=== PATIENT | female | born 1975 | race Caucasian/White ===

== ENCOUNTER → 2017-02-05 | Outpatient (CLI) | payer MEDICARE, MEDICAID ==
[~2017-02-05] MED LIST: ASCORBIC ACID500 MG PO; AUGMENTIN875 MG PO; BACTRIM DS DPS1 TAB PO; BACTRIM DS TAB1 EACH PO; BROVANA15 MCG/2 M IH; BUSPAR DPS15 MG PO; CLARITIN DPS10 MG PO; CLARITIN10 M2 PO; COMBIVENT RESPIM4 GM IH; CORTISPORIN OP7.5 ML; DELTASONE DPS20 MG PO; DESYREL DPS100 MG PO; DESYREL-DPS50 MG PO; DITROPAN-DPS5 MG PO; DUONEB DPS3 ML IH; HYTRIN5 MG PO; IRON325 M1 PO; LASIX DPS20 MG PO; LEVAQUIN DPS500 MG PO; LOTRIMIN DPS15 GM TP; MAALOX DPS30 ML PO; MONTELUKAST SOD10 MG PO; NILSTAT SUSP DPS5 ML PO; PROMETHAZINE-D120 ML PO; PROVENTIL HFA6.7 GM IH; PULMICORT0.25 MG/1 PO; PULMICORT0.5 MG/2 M IH; SINGULAIR10 MG PO; SURFAK DPS240 MG PO; SYMBICORT160 MCG/6 IH; THERA1 EACH PO; TYLENOL DPS325 MG PO; VALIUM5 MG PO; XANAX DPS0.25 MG PO; ZANTAC DPS150 MG PO; ZOLOFT DPS100 MG PO; ZOLOFT DPS50 MG PO
== END | disposition home or self-care (01) ==
LOC: RAD.S 09:46
DX: R09.89 Other specified symptoms and signs involving the circulatory and respiratory systems (principal); Z87.01 Personal history of pneumonia (recurrent)

== ENCOUNTER 2017-03-05 11:27 | Emergency (ER) | payer MEDICARE, MEDICAID ==
--- NOTE | 2017-03-11 16:08 | ER ---
ADMIT: 03/05/2017 RM/LOC: ER [facility] MR#: [id number] [place], [place] [id number] [address] [place] [address] Emergency Room Report SEX: F AGE: 41 : 1975 DATE: 03/05/2017 ADDENDUM: CHIEF COMPLAINT: Chest pain. HISTORY OF PRESENT ILLNESS: This is a 41-year-old female, who just recently getting over bronchitis. She is on her last day of prednisone. She finishes Levaquin tomorrow. She was at, I believe physical therapy this morning. She told him that it was difficult for her to swallow this morning, she felt like pill was stuck in her throat, and also complains some chest pain, so they sent her to the emergency room. Upon arrival, she rates her pain at 9/10, and points to the right side of her chest, says she feels like something is stuck in there. PAST MEDICAL HISTORY: Hypertension, anxiety, asthma, and GERD. HOME MEDICATIONS: Please see nurse's note. ALLERGIES: ERYTHROMYCIN, CODEINE, AND ROCEPHIN. FAMILY HISTORY: Noncontributory. SOCIAL HISTORY: Denies any tobacco, drug, or alcohol use. PHYSICAL EXAMINATION: VITAL SIGNS: Blood pressure is 138/78, pulse is 65, respirations 16, temperature is 97.2, and saturation of oxygen is 95% on room air. GENERAL APPEARANCE: The patient is no acute distress and alert. HEENT: Pharynx is slightly erythemic. She is actually look like she has abrasion towards the posterior throat. TMs are non-erythemic bilaterally. NECK: Supple. HEART: Regular rate and rhythm at a rate of 65. LUNGS: CTA bilaterally. No wheezes, rales, or rhonchi. Her sats are 95% on room air. When palpating her chest, the pain is reproducible. She says that is the pain that she is having. ABDOMEN: Soft, nontender, no distention. SKIN: Normal color, warm, and dry. No rashes noted. NEURO AND PSYCH: She is alert and oriented x3. Mood and affect normal. ADMIT: 03/05/2017 RM/LOC: ER [facility] MR#: [id number] [address] [id number] [address] [facility] [place] [address] Emergency Room Report SEX: F AGE: 41 : 1975 COURSE IN THE EMERGENCY ROOM: Initially, I gave her a GI cocktail and did a chest x-ray and EKG. EKG showed slightly sinus raf at a rate of 54. Her chest x-ray is negative for any acute findings over-read by Dr. Maxwell. CBC is normal except for white count of 10.3. CMP is normal except for glucose of 141. All her cardiac enzymes and troponin were normal. I did speak with Dr. Hernandez regarding this patient. It sounds like she has had an echo in the past in 2016, which was negative. Her pain more than likely is probably from her recent bronchitis. She felt as though she is okay to go home and have patient follow up on Wednesday. I did tell other people in the room that were with Vira to have her come back if signs and symptoms worsen. CLINICAL IMPRESSION: Chest wall pain. MARTIN Erazo / James Maxwell MD / olga lidial JOB #: [id number] CC: James Maxwell MD, Attending Physician April Acosta MD, Family Physician
== END 2017-03-05 14:15 | disposition home or self-care (01) ==
LOC: ER 11:27
DX: R07.89 Other chest pain (principal); F41.9 Anxiety disorder, unspecified; I10 Essential (primary) hypertension; J45.909 Unspecified asthma, uncomplicated; Z88.5 Allergy status to narcotic agent; Z88.1 Allergy status to other antibiotic agents